=== PATIENT | female | born 1990 | race Caucasian/White ===

== ENCOUNTER 2022-06-26 08:13 | Day surgery (SDC) | payer OTHER ==
[2022-06-25 11:01] VITALS: BMI 31.3
--- NOTE | 2022-06-26 06:22 | P.HPOB ---
History of Present Illness H&P Date: 06/26/22 Chief Complaint: FLACA III 31 year old presents for LEEP due to FLACA III found on colposcopy with biopsy at 4 oclock. Review of Systems All systems: negative Constitutional: Denies chills, Denies fever Eyes: denies blurred vision, denies pain Ears, nose, mouth and throat: Denies headache, Denies sore throat Cardiovascular: Denies chest pain, Denies shortness of breath Respiratory: Denies cough Gastrointestinal: Denies abdominal pain, Denies diarrhea, Denies nausea, Denies vomiting Genitourinary: Denies dysuria, Denies hematuria Musculoskeletal: Denies myalgias Integumentary: Denies pruritus, Denies rash Neurological: Denies numbness, Denies weakness Psychiatric: Denies anxiety, Denies depression Endocrine: Denies fatigue, Denies weight change Past Medical History Past Medical History: No Reported History History of Any Multi-Drug Resistant Organisms: None Reported Past Surgical History: No Surgical Hx Reported Past Anesthesia/Blood Transfusion Reactions: No Reported Reaction Smoking Status: Former smoker - Past Family History Mother Family Medical History: No Reported History Medications and Allergies Home Medications Medication Instructions Recorded Confirmed Type Acetaminophen Tab [Tylenol] 650 mg PO Q4H PRN 06/25/22 06/25/22 History Cetirizine HCl [Zyrtec] 10 mg PO DAILY PRN 06/25/22 06/25/22 History Allergies Allergy/AdvReac Type Severity Reaction Status Date / Time nickel Allergy Itching, Verified 06/25/22 10:22 RASH Exam Osteopathic Statement: *. No significant issues noted on an osteopathic structural exam other than those noted in the History and Physical/Consult. 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
[~2022-06-26 08:13] MED LIST: Pre Op ABX Message 1 EACH MISC MISCELLANE ONE
[2022-06-26] MEDS ORDERED: LIDOCAINE 1% (10MG/ML) FOR IV START INTRADERMA PRN (08:28)
[2022-06-26] MEDS ORDERED: HYDROmorphone 0.5 MG/0.5 ML SYRINGE IVP PRN (08:28)
[2022-06-26] MEDS ORDERED: DEXAMETHASONE SOD PHOSPHATE 4 MG/ML 1 ML VIAL IV ONE (08:28)
[2022-06-26] MEDS ORDERED: LACTATED RINGERS 1,000 ML IV SCH (08:28)
[2022-06-26] MEDS ORDERED: ONDANSETRON 4 MG/2 ML VIAL IVP ONE (08:28)
[2022-06-26] MEDS ORDERED: LIDOCAINE 2% INJ 20 MG/ML (2 ML VIAL) ONE (09:38)
[2022-06-26] MEDS ORDERED: fentaNYL (PF) 50 MCG/ML 2 ML AMP ONE (09:38)
[2022-06-26] MEDS ORDERED: MIDAZOLAM 2 MG/2 ML VIAL ONE (09:38)
[2022-06-26] MEDS ORDERED: PROPOFOL 10 MG/ML 20 ML VIAL IV ONE (09:38)
[2022-06-26] MEDS ORDERED: FERRIC SUBSULFATE (MONSELS) JAR TOPICAL ONE (10:03)
--- NOTE | 2022-06-26 10:16 | P.OP ---
Date of Procedure: 06/26/22 Preoperative Diagnosis: 1. FLACA III Postoperative Diagnosis: same Procedure(s) Performed: LEEP Anesthesia: MAC Surgeon: Denia Giordano Estimated Blood Loss (ml): 40 IV fluids (ml): 100 Urine output (ml): 20 Pathology: other (cervical cone) Condition: stable Disposition: PACU Operative Findings: Normal appearing cervix with IUD in place. I did cut the strings during the procedure. Description of Procedure: Patient taken the operating room and general anesthesia obtained without difficulty. She is prepped and draped in normal sterile fashion dorsal lithotomy position, legs placed in the Khanh stirrups. Bladder was drained of all urine. A coated bivalve speculum was placed in the vagina and hooked up to suction. The cervix appeared normal and I did see the strings coming from the cervical os going to the patient's left side. I took the 2 cm loop and went from 12:00 to 6:00 taking the right side of the cervix in an attempt to avoid the IUD strings. When I removed this piece of IUD strings also reviewed were removed but the IUD remains in place. I then used the 2 cm loop to get a biopsy of the left side of the cervix, a third swipe was done from 3:00 to 6:00 where the biopsy had been performed in the office. The ball cautery was then used to cauterize the crater left. Monsel's was also placed. Hemostasis was assured. All instruments removed from the vagina. Patient to our procedure well, sponge management count correct 2 and patient was taken to recovery in stable condition.
[2022-06-26 10:22] VITALS: TEMP 97
[2022-06-26 11:04] VITALS: RESP 14
[2022-06-26] MEDS ORDERED: Acetaminophen-Codeine 300-30mg TAB ONE (11:09)
[2022-06-26] MEDS ORDERED: Acetaminophen-Codeine 300-30mg TAB PO ONE (11:10)
[2022-06-26 11:40] VITALS: BP 109/73; PULSE 84
== END 2022-06-26 11:50 | disposition home or self-care (01) ==
LOC: OR 08:13
PROVIDERS: ATTEND Obstetrics & Gynecology
DX: D06.9 Carcinoma in situ of cervix, unspecified (principal); K21.9 Gastro-esophageal reflux disease without esophagitis; Z87.891 Personal history of nicotine dependence; Z79.899 Other long term (current) drug therapy
CPT/HCPCS: 81025; 57522; J2250; J1100; J2405; J3010; J2704; J2001; 88307